=== PATIENT | female | born 1960 | race Caucasian/White ===

== ENCOUNTER → 2017-04-29 | Emergency (ER) | payer BC, OTHER ==
[~2017-04-29] MED LIST: IBUPROFEN 400 MG TABLET (FP) PO ONE; diazePAM 2 MG TABLET PO ONE
[2017-04-29 10:01] VITALS: TEMP 98.5; BMI 34.7
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
[2017-04-29 11:09] LABS: BASOPHIL 0.8 % (0-2.0); EOSINOPHIL 1.9 % (0-4.5); MCH 30.5 pg (25.7-33.7); MEAN CELL VOLUME 92.3 fl (80-96); MEAN PLT VOLUME 7.2 fl (7.5-11.1); NEUTROPHILS 71.2 % (42.8-82.8); PLATELET COUNT 269 K/MM3 (134-434); RDW 13.2 % (11.6-15.6); WHITE BLOOD COUNT 6.9 K/mm3 (4.0-10.0)
[2017-04-29 11:31] LABS: INR 1.18 (0.82-1.09)
[2017-04-29 11:35] LABS: ALBUMIN 3.8 g/dl (3.4-5.0); ALK PHOS 55 U/L (45-117); ANION GAP 11 (8-16); BILIRUBIN,TOTAL 0.4 mg/dL (0.2-1.0); CO2 27 mmol/L (21-32); CREATININE 0.7 mg/dL (0.55-1.02); GLUCOSE,RANDOM 153 mg/dL (74-106); SGOT/AST 16 U/L (15-37); SGPT/ALT 18 U/L (12-78); TOT PROT 7.4 g/dl (6.4-8.2)
[2017-04-29 11:57] LABS: TROPONIN I < 0.02 ng/ml (0.00-0.05)
[2017-04-29 13:06] VITALS: BP 142/74; PULSE 67
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
--- NOTE | 2017-04-30 16:31 | EKG ---
Test Reason : Blood Pressure : / mmHG Vent. Rate : 093 BPM Atrial Rate : 093 BPM P-R Int : 158 ms QRS Dur : 090 ms QT Int : 378 ms P-R-T Axes : 058 028 067 degrees QTc Int : 469 ms SINUS RHYTHM WITH PREMATURE ATRIAL COMPLEXES POSSIBLE LEFT ATRIAL ENLARGEMENT NONSPECIFIC ST AND T WAVE ABNORMALITY PROLONGED QT ABNORMAL ECG WHEN COMPARED WITH ECG OF 27-AUG-2013 09:51, PREMATURE ATRIAL COMPLEXES ARE NOW PRESENT VENT. RATE HAS INCREASED BY 34 BPM Confirmed by ROBBIE VIGIL MD ([id number]) on 04/30/2017 4:31:52 PM Referred By: Confirmed By:ROBBIE VIGIL MD
== END | disposition home or self-care (01) ==
LOC: JER 09:54
DX: S46.812A Strain of other muscles, fascia and tendons at shoulder and upper arm level, left arm, initial encounter (principal); S20.212A Contusion of left front wall of thorax, initial encounter; V43.52XA Car driver injured in collision with other type car in traffic accident, initial encounter; Y93.89 Activity, other specified; Y92.410 Unspecified street and highway as the place of occurrence of the external cause; R00.2 Palpitations; I10 Essential (primary) hypertension; E03.9 Hypothyroidism, unspecified
CPT/HCPCS: 36415; 71020-TC; 80053; 82550; 82553; 84484; 85025; 85610; 93005; 93010; 99283-25

== ENCOUNTER 2020-11-05 06:18 | Inpatient (IN) | payer BC ==
[2020-11-05 06:51] VITALS: BMI 34.7
[2020-11-05] MEDS ORDERED: MIDAZOLAM HCL 2 MG/2 ML SINGLE DOSE VIAL ONE ×2 (06:59→07:15)
[2020-11-05] MEDS ORDERED: BUPIVACAINE LIPOSOME/PF (EXPAREL) 266 MG/20 ML VIAL ONE ×2 (06:59→07:05)
[2020-11-05] MEDS ORDERED: SODIUM CHLORIDE 0.9% P/F 10 ML VIAL IJ ONE (07:00)
[2020-11-05] MEDS ORDERED: VANCOMYCIN 1,000 MG VIAL (RESTRICTED TO ID ONLY) ONE (07:06)
[2020-11-05] MEDS ORDERED: ePHEDrine SULFATE 50 MG/1 ML AMPULE ONE (07:14)
[2020-11-05] MEDS ORDERED: PROPOFOL 20 ML ONE ×11 (07:15→12:15)
[2020-11-05] MEDS ORDERED: SUCCINYLCHOLINE CHLORIDE 200 MG/10 ML SYRINGE ONE (07:15)
[2020-11-05] MEDS ORDERED: ROCURONIUM BROMIDE 50 MG/5 ML SYRINGE ONE (07:15)
[2020-11-05] MEDS ORDERED: BUPIVACAINE HCL/PF 0.5% (5MG/ML) 10 ML VIAL ONE (07:23)
[2020-11-05] MEDS ORDERED: BUPIVICAINE 0.25%/MORPH PF/KETOROLAC - 51ML DISP.SYRINGE IA ONE (09:24)
[2020-11-05] MEDS ORDERED: ONDANSETRON 4 MG/2 ML VIAL IVPUSH PRN ×2 (09:25→12:51)
[2020-11-05] MEDS ORDERED: ACETAMINOPHEN 1000 MG/100 ML VIAL (NON FORMULARY) IVPB ONE (09:25)
[2020-11-05] MEDS ORDERED: oxyCODONE HCL 5 MG TABLET PO PRN (09:25)
[2020-11-05] MEDS ORDERED: LACTATED RINGERS SOLUTION 1,000 ML IV SCH ×2 (09:30→13:00)
[2020-11-05] MEDS ORDERED: MAG HYDROX/AL HYDROX/SIMETH 30 ML UNIT-DOSE CUP PO PRN (12:51)
[2020-11-05] MEDS: oxyCODONE HCL 10 MG SUSTAINED ACTING TABLET PO SCH ×2 (13:45→21:43)
[2020-11-05] MEDS: CEFAZOLIN 2 GM/D5W 2 GM/50 ML ML IVPB SCH (18:25)
[2020-11-05] MEDS: ACETAMINOPHEN 325 MG TABLET (FP) PO SCH (18:56)
[2020-11-05] MEDS: oxyCODONE HCL 5 MG TABLET PO PRN (21:43)
[2020-11-05] MEDS: GABAPENTIN 300 MG CAPSULE PO SCH (21:44)
[2020-11-05] MEDS: SENNOSIDES/DOCUSATE COMBO (SENNA PLUS) TABLET (UD) PO SCH (21:44)
[2020-11-06] MEDS: ACETAMINOPHEN 325 MG TABLET (FP) PO SCH ×4 (00:24→19:17)
[2020-11-06] MEDS: CEFAZOLIN 2 GM/D5W 2 GM/50 ML ML IVPB SCH ×2 (01:46→10:15)
[2020-11-06] MEDS ORDERED: LEVOTHYROXINE NA 75 MCG TABLET (FP) ONE (06:02)
[2020-11-06] MEDS ORDERED: LEVOTHYROXINE NA 100 MCG TABLET (FP) ONE (06:02)
[2020-11-06] MEDS: LEVOTHYROXINE 100 MCG, LEVOTHYROXINE 75 MCG PO SCH (06:15)
[2020-11-06] MEDS: oxyCODONE HCL 5 MG TABLET PO PRN (06:15)
[2020-11-06 08:17] LABS: CALCIUM 8.4 mg/dl (8.5-10); CREATININE 0.8 mg/dl (0.55-1.3); MAGNESIUM 1.7 mg/dL (1.8-2.4); POTASSIUM 4.1 mmol/L (3.5-5.1)
[2020-11-06 09:32] LABS: HEMATOCRIT 36.6 % (32.4-45.2); MCH 29.8 pg (25.7-33.7); MCHC 32.8 g/dl (32.0-36.0); MEAN CELL VOLUME 90.9 fl (80-96); MEAN PLT VOLUME 7.1 fl (7.5-11.1); PLATELET COUNT 296 K/MM3 (134-434); RBC 4.03 M/mm3 (3.60-5.2); RDW 13.5 % (11.6-15.6)
[2020-11-06] MEDS ORDERED: PATIENT'S OWN MEDICATION (NON-FORMULARY) (Levothyroxine [Synthroid -] 175 MCG Tablet) PO SCH (10:00)
[2020-11-06] MEDS ORDERED: DILTIAZEM HCL 240 MG PO SCH (10:00)
[2020-11-06] MEDS ORDERED: PATIENT'S OWN MEDICATION (NON-FORMULARY) (Losartan/Hydrochlorothiazide [Losartan-Hctz 100- PO SCH (10:00)
[2020-11-06] MEDS: oxyCODONE HCL 10 MG SUSTAINED ACTING TABLET PO SCH (10:13)
[2020-11-06] MEDS: HYDROCHLOROTHIAZIDE 12.5 MG CAPSULE (FP) PO SCH (10:14)
[2020-11-06] MEDS: SENNOSIDES/DOCUSATE COMBO (SENNA PLUS) TABLET (UD) PO SCH ×2 (10:14→21:50)
[2020-11-06] MEDS: GABAPENTIN 300 MG CAPSULE PO SCH ×2 (10:14→21:50)
[2020-11-06] MEDS: LOSARTAN POTASSIUM 50 MG TABLET PO SCH (10:14)
[2020-11-06] MEDS: MULTIVITAMINS (DAILY MVI) TABLET (FP) PO SCH (10:14)
[2020-11-06] MEDS: ASPIRIN 325 MG TABLET PO SCH ×2 (10:14→21:50)
[2020-11-06] MEDS: PANTOPRAZOLE 40 MG TABLET PO SCH (10:15)
[2020-11-06] MEDS ORDERED: MAGNESIUM SULF 50% (8.12 MEQ/2 ML-1 GM VIAL) IVPB ONE (12:10)
[2020-11-06] MEDS ORDERED: MAGNESIUM SULFATE IN WATER 2 GM/50 ML IVPB IVPB ONE (12:15)
[2020-11-06] MEDS: metFORMIN HCL 500 MG TABLET (FP) PO SCH (14:00)
[2020-11-06] MEDS: traMADol HCL 50 MG TABLET PO PRN (19:16)
[2020-11-07] MEDS: ACETAMINOPHEN 325 MG TABLET (FP) PO SCH ×2 (00:28→06:31)
[2020-11-07] MEDS ORDERED: LEVOTHYROXINE NA 100 MCG TABLET (FP) ONE (06:22)
[2020-11-07] MEDS ORDERED: LEVOTHYROXINE NA 75 MCG TABLET (FP) ONE (06:22)
[2020-11-07] MEDS: metFORMIN HCL 500 MG TABLET (FP) PO SCH (06:30)
[2020-11-07] MEDS: LEVOTHYROXINE 100 MCG, LEVOTHYROXINE 75 MCG PO SCH (06:30)
[2020-11-07 06:55] VITALS: BP 129/61; PULSE 79; TEMP 98.9
[2020-11-07 08:21] LABS: HEMATOCRIT 35.8 % (32.4-45.2); MCH 30.8 pg (25.7-33.7); MCHC 33.4 g/dl (32.0-36.0); MEAN CELL VOLUME 92.3 fl (80-96); MEAN PLT VOLUME 7.2 fl (7.5-11.1); PLATELET COUNT 322 K/MM3 (134-434); RBC 3.88 M/mm3 (3.60-5.2); WHITE BLOOD COUNT 11.5 K/mm3 (4.0-10.8)
[2020-11-07 08:23] LABS: CALCIUM 8.4 mg/dl (8.5-10); CREATININE 0.6 mg/dl (0.55-1.3); POTASSIUM 3.5 mmol/L (3.5-5.1)
[2020-11-07] MEDS: SENNOSIDES/DOCUSATE COMBO (SENNA PLUS) TABLET (UD) PO SCH (10:02)
[2020-11-07] MEDS: MULTIVITAMINS (DAILY MVI) TABLET (FP) PO SCH (10:03)
[2020-11-07] MEDS: LOSARTAN POTASSIUM 50 MG TABLET PO SCH (10:03)
[2020-11-07] MEDS: GABAPENTIN 300 MG CAPSULE PO SCH (10:03)
[2020-11-07] MEDS: ASPIRIN 325 MG TABLET PO SCH (10:03)
[2020-11-07] MEDS: HYDROCHLOROTHIAZIDE 12.5 MG CAPSULE (FP) PO SCH (10:03)
[2020-11-07] MEDS: PANTOPRAZOLE 40 MG TABLET PO SCH (10:04)
[2020-11-07] MEDS: traMADol HCL 50 MG TABLET PO PRN (10:04)
[2020-11-08] MEDS ORDERED: CHOLECALCIFEROL (VIT D3) 1,000 UNIT (25 MCG) TABLET PO SCH (10:00)
[2020-11-08] MEDS ORDERED: PATIENT'S OWN MEDICATION (NON-FORMULARY) (Multivit-Min/Fa/Lycopen/Lutein [Centrum Silver T PO SCH (10:00)
[2020-11-08] MEDS ORDERED: MULTIVITAMINS THER W-MINERALS COMBO TABLET (FP) PO SCH (10:00)
== END 2020-11-07 12:13 | disposition home health service (06) | DRG 470 ==
LOC: FM/S 06:18
PROVIDERS: ADMIT Orthopaedic Surgery Sports Medicine; ATTEND Registered Nurse Emergency
PROC: 0SRD0J9 Replacement of Left Knee Joint with Synthetic Substitute, Cemented, Open Approach (ICD-10-PCS; principal; 2020-11-05 09:15)
DX: M17.12 Unilateral primary osteoarthritis, left knee (principal); I10 Essential (primary) hypertension; E03.9 Hypothyroidism, unspecified; E78.5 Hyperlipidemia, unspecified; R73.03 Prediabetes; F32.9 Major depressive disorder, single episode, unspecified; E66.9 Obesity, unspecified; Z68.34 Body mass index [BMI] 34.0-34.9, adult; E83.42 Hypomagnesemia; R11.0 Nausea; Z96.651 Presence of right artificial knee joint
CPT/HCPCS: 36415; 73560-TC-LT-FY; 80048; 82962; 83735; 85027; 88304-TC; 88311-TC; 94760; 97010-GP; 97116-GP; 97163-GP

== ENCOUNTER 2022-11-25 10:15 | Emergency (ER) | payer BC ==
[2022-11-25 10:30] VITALS: BP 142/85; PULSE 67; RESP 15; TEMP 99.4; BMI 30.3
[2022-11-25] MEDS ORDERED: ACETAMINOPHEN 500 MG TABLET (FP) PO ONE (10:35)
[2022-11-25] MEDS ORDERED: ACETAMINOPHEN 500 MG TABLET (FP) ONE (10:57)
== END 2022-11-25 12:19 | disposition home or self-care (01) ==
LOC: FER 10:15
DX: M71.21 Synovial cyst of popliteal space [Baker], right knee (principal)
CPT/HCPCS: 93971-TC; 99283-25